=== PATIENT | male | born 1995 | race Hispanic/Latino ===

== ENCOUNTER 2020-10-24 21:17 | Inpatient (IN) | payer OTHER, SELFPAY ==
[2020-10-24] MEDS ORDERED: Lidocaine 1% w/Epinephrine 1:100K 20 ML VIAL ONE (21:26)
[2020-10-24 22:02] LABS: #Basophils 0.1 thou/uL (0.0-0.2); #Eosinphils 0.3 thou/uL (0.0-0.7); #Lymphocytes 2.2 thou/uL (1.20-3.40); #Monocytes 0.4 thou/uL (0.11-0.59); #Neutrophils 6.2 thou/uL (1.40-6.50); %Basophils 0.8 % (0.0-1.0); %Eosinophils 2.7 % (0.0-10.0); %Lymphocytes 24.4 % (21.0-51.0); %Monocytes 4.6 % (0.0-10.0); %Neutrophils 67.4 % (42.0-75.0); Mean Corpuscular HGB CONC 34.6 g/dL (32.0-36.0); Mean Corpuscular Hemoglobin 29.8 pg (27.0-31.0); Mean Platelet Volume 8.6 fL (7.4-10.4); Platelet Count 269 thou/uL (130-400); RBC Distribution Width 13.5 % (11.5-14.5); Red Blood Cell (RBC) Count 4.38 mill/uL (4.70-6.10); White Blood Cell (WBC) Count 9.2 thou/uL (4.8-10.8)
[2020-10-24 22:11] LABS: ALT (SGPT) 39 U/L (8-55); AST (SGOT) 35 U/L (5-34); Albumin 4.1 g/dL (3.5-5.0); Alcohol Less than 10 mg/dL (Less than 10); Alkaline Phosphatase 86 U/L (40-110); Anion Gap 15 mmol/L (10-20); BUN (Urea Nitrogen) 14 mg/dL (8.9-20.6); Bilirubin, Total 0.7 mg/dL (0.2-1.2); Calc. Creatinine Clearance 0 mL/min (70-130); Calcium 8.8 mg/dL (7.8-10.44); Carbon Dioxide 23 mmol/L (22-29); Chloride 105 mmol/L (98-107); Globulin 2.9 g/dL (2.4-3.5); Glucose 137 mg/dL (70-105); Potassium 3.5 mmol/L (3.5-5.1); Sodium 139 mmol/L (136-145)
[2020-10-24] MEDS ORDERED: Ondansetron PF 4 MG/2 ML Vial ONE (22:12)
[2020-10-24] MEDS ORDERED: EPINEPHrine 1 MG/ML AMP ONE (23:17)
[2020-10-24] MEDS ORDERED: Sodium Chloride 0.9% 10 ML ONE (23:17)
[2020-10-24] MEDS ORDERED: Thrombin 5000 UNITS/5 ML VIAL ONE (23:17)
[2020-10-24] MEDS ORDERED: Bacitracin Zinc Ointment 30 gm TUBE ONE (23:17)
[2020-10-24] MEDS ORDERED: Bupivacaine PF 0.5% 30 ML VIAL ONE (23:17)
[2020-10-24] MEDS ORDERED: Fentanyl 250 MCG/5 ML VIAL ONE (23:20)
[2020-10-24] MEDS ORDERED: Phenylephrine 10 MG/ML VIAL ONE (23:21)
[2020-10-24] MEDS ORDERED: Boostrix 0.5 ML (Tdap) VIAL ONE (23:25)
[2020-10-24] MEDS ORDERED: Lidocaine 1% PF 5 ML VIAL ONE (23:40)
[2020-10-24] MEDS ORDERED: ePHEDrine Sulfate 50 MG/10 ML VIAL ONE (23:40)
[2020-10-24] MEDS ORDERED: Vecuronium 10 MG VIAL ONE ×2 (23:40)
[2020-10-24] MEDS ORDERED: Succinylcholine 200 MG/10 ml SYRINGE FS ONE (23:40)
[2020-10-24] MEDS ORDERED: PROPOFOL 200 MG/20 ML VIAL ONE (23:40)
[2020-10-24] MEDS ORDERED: Dexamethasone 20 MG/5 ML VIAL ONE (23:40)
[2020-10-24] MEDS ORDERED: PHENYLEPHRINE-NS 100 MCG/ML 10 ML SYRINGE ONE (23:40)
[2020-10-24] MEDS ORDERED: Rocuronium Bromide 10 MG/ML (10ML VIAL) ONE (23:40)
[2020-10-25] MEDS ORDERED: Dextrose 5% in Water 1,000 ML IV PRN ×2 (00:18→01:11)
[2020-10-25] MEDS ORDERED: Dextrose 50% Abboject 50 ML SYRINGE SLOW IVP PRN ×2 (00:18→01:11)
[2020-10-25] MEDS ORDERED: TETANUS AND DIPHTHERIA TOX/PF 0.5 ML DISP.SYRIN IM ONE (00:18)
[2020-10-25] MEDS ORDERED: Morphine 2 MG/ML VIAL SLOW IVP PRN ×2 (00:18→06:00)
[2020-10-25] MEDS ORDERED: Ondansetron PF 4 MG/2 ML Vial IVP PRN (00:18)
[2020-10-25] MEDS ORDERED: traMADol HCl 50 MG TAB PO PRN (00:22)
[2020-10-25 00:38] LABS: SARS-CoV-2 NAA Rapid Test Not Detected (NotDetected)
[2020-10-25] MEDS ORDERED: Sodium Chloride 0.9% 10 ML ONE (00:57)
[2020-10-25] MEDS ORDERED: Vecuronium 10 MG VIAL ONE (04:06)
[2020-10-25] MEDS ORDERED: Prochlorperazine 10 MG/2 ML VIAL IM PRN (05:02)
[2020-10-25] MEDS ORDERED: Mag-Al 1200 mg/1200 mg/30 ML UDCUP PO PRN (05:02)
[2020-10-25] MEDS ORDERED: Bisacodyl 10 MG SUPP PR PRN (05:02)
[2020-10-25] MEDS ORDERED: tiZANidine HCl 4 MG TAB PO PRN (05:02)
[2020-10-25] MEDS ORDERED: Promethazine HCl 25 MG/ML VIAL IM PRN (05:02)
[2020-10-25] MEDS ORDERED: Milk Of Magnesia 30 ML UDCUP PO PRN (05:02)
[2020-10-25] MEDS ORDERED: Acetaminophen/Codeine 30-300mg Tablet PO PRN ×2 (05:02)
[2020-10-25] MEDS ORDERED: Promethazine HCl 12.5 MG SUPP PR PRN (05:02)
[2020-10-25 05:28] LABS: CO2 Tension 44.9 mmHg (35.0-45.0); Calcium, Ionized (arterial) 1.07 mmol/L (1.12-1.30); Carboxyhemoglobin (COHb) 0.2 gm% (0.0-3.0); Hemoglobin (Hb) 11.9 g/dL (14.0-18.0)
[2020-10-25 05:29] LABS: Puncture Site LRA; pH, Arterial 7.25 (7.35-7.45)
[2020-10-25 05:30] LABS: ALV-art Gradient 348.875 mmHg (0-20)
[2020-10-25] MEDS ORDERED: Sodium Bicarb 50 MEQ/50 ML Abboject 8.4% SYRINGE IVP SCH ×3 (05:45→07:15)
[2020-10-25] MEDS ORDERED: fentaNYL Citrate/PF 2,000 MCG in Sodium Chloride 0.9% 60 ML IV PRN (05:46)
[2020-10-25] MEDS ORDERED: Fentanyl CADD 100 ML IV SCH (06:00)
[2020-10-25] MEDS ORDERED: Calcium Chloride 13.6 MEQ in Sodium Chloride 0.9% 100 ML IVPB SCH (06:00)
[2020-10-25] MEDS ORDERED: Propofol BOLUS 1,000 MG/100 ML VIAL IV PRN (06:00)
[2020-10-25] MEDS ORDERED: traMADol HCl 50 MG TAB PO SCH (06:00)
[2020-10-25] MEDS ORDERED: DISCONTINUE PREVIOUS NARCOTIC PAIN MEDICATIONS AND BENZODIAZEPINES FS SCH (06:00)
[2020-10-25] MEDS ORDERED: Fentanyl BOLUS 250 ML IVPB PRN (06:00)
[2020-10-25] MEDS ORDERED: Propofol 1,000 MG/100 ML VIAL IV PRN (06:00)
[2020-10-25] MEDS: Acetaminophen 325 MG TAB PO SCH ×4 (06:06→23:59)
[2020-10-25] MEDS: Sodium Chloride 0.9% 1,000 ML IV SCH ×3 (06:08→21:14)
[2020-10-25] MEDS: Scopolamine 1.5 mg/72 hour Patch TD SCH (06:16)
[2020-10-25] MEDS: CEFAZOLIN 2 GM in Premix Bag 1 BAG IVPB SCH ×3 (06:16→22:14)
[2020-10-25] MEDS: Lorazepam 2 MG/ML VIAL SLOW IVP PRN ×5 (06:40→20:09)
[2020-10-25 06:57] LABS: INR-International Normal Ratio 1.1; PTT 23.4 sec (22.9-36.1); Prothrombin Time 14.1 sec (12.0-14.7)
[2020-10-25 06:59] LABS: #Basophils 0.1 thou/uL (0.0-0.2); #Lymphocytes 0.6 thou/uL (1.20-3.40); #Monocytes 0.1 thou/uL (0.11-0.59); #Neutrophils 14.1 thou/uL (1.40-6.50); %Basophils 0.8 % (0.0-1.0); %Eosinophils 0.1 % (0.0-10.0); %Lymphocytes 3.9 % (21.0-51.0); %Monocytes 0.9 % (0.0-10.0); %Neutrophils 94.2 % (42.0-75.0); Hemoglobin 11.6 g/dL (14.0-18.0); Mean Corpuscular HGB CONC 33.8 g/dL (32.0-36.0); Mean Corpuscular Hemoglobin 29.7 pg (27.0-31.0); Mean Corpuscular Volume 87.7 fL (78.0-98.0); Mean Platelet Volume 8.5 fL (7.4-10.4); Platelet Count 238 thou/uL (130-400); RBC Distribution Width 13.7 % (11.5-14.5); Red Blood Cell (RBC) Count 3.91 mill/uL (4.70-6.10); White Blood Cell (WBC) Count 14.9 thou/uL (4.8-10.8)
[2020-10-25 07:04] LABS: ALT (SGPT) 35 U/L (8-55); AST (SGOT) 33 U/L (5-34); Albumin 3.6 g/dL (3.5-5.0); Alkaline Phosphatase 75 U/L (40-110); Anion Gap 14 mmol/L (10-20); BUN (Urea Nitrogen) 14 mg/dL (8.9-20.6); Bilirubin, Total 0.9 mg/dL (0.2-1.2); Calc. Creatinine Clearance 0 mL/min (70-130); Calcium 7.8 mg/dL (7.8-10.44); Carbon Dioxide 20 mmol/L (22-29); Chloride 109 mmol/L (98-107); Globulin 2.6 g/dL (2.4-3.5); Glucose 209 mg/dL (70-105); Potassium 4.3 mmol/L (3.5-5.1); Protein, Total 6.2 g/dL (6.0-8.3); Sodium 139 mmol/L (136-145)
[2020-10-25] MEDS ORDERED: Fentanyl 100 MCG/2 ML VIAL ONE (07:04)
[2020-10-25] MEDS: Senokot S 8.6-50 MG TAB PO SCH ×2 (07:28→19:46)
[2020-10-25] MEDS: Gabapentin 300 MG CAP PO SCH ×3 (07:28→19:47)
[2020-10-25] MEDS: Famotidine/PF 20 mg/2ml Vial SLOW IVP SCH ×2 (07:37→19:47)
[2020-10-25] MEDS: Fentanyl 100 MCG/2 ML VIAL SLOW IVP PRN (08:30)
[2020-10-25] MEDS ORDERED: Fentanyl 100 MCG/2 ML VIAL SLOW IVP PRN (09:03)
[2020-10-25] MEDS ORDERED: Fentanyl CADD 100 ML ONE (09:54)
[2020-10-25] MEDS: Lactated Ringer's 500 ML IV SCH ×2 (19:45→23:35)
[2020-10-25] MEDS ORDERED: Lactated Ringer's 500 ML IV SCH ×2 (19:45→23:30)
[2020-10-25] MEDS: Ampicillin/Sulbactam 3 GM in Sodium Chloride 0.9% 100 ML IVPB SCH (23:15)
[2020-10-25] MEDS ORDERED: Hydrocortisone Sod Succ/PF 100 mg/2 ml Vial IVP SCH (23:30)
[2020-10-26] MEDS: Acetaminophen 325 MG TAB PO SCH ×3 (05:27→21:37)
[2020-10-26] MEDS: Sodium Chloride 0.9% 1,000 ML IV SCH ×3 (05:27→20:50)
[2020-10-26] MEDS: Ampicillin/Sulbactam 3 GM in Sodium Chloride 0.9% 100 ML IVPB SCH ×4 (05:27→23:32)
[2020-10-26 06:23] LABS: #Lymphocytes 1.3 thou/uL (1.20-3.40); #Monocytes 1.7 thou/uL (0.11-0.59); #Neutrophils 12.6 thou/uL (1.40-6.50); %Basophils 0.1 % (0.0-1.0); %Lymphocytes 8.5 % (21.0-51.0); %Monocytes 10.9 % (0.0-10.0); %Neutrophils 80.6 % (42.0-75.0); Mean Corpuscular HGB CONC 33.2 g/dL (32.0-36.0); Mean Corpuscular Hemoglobin 29.4 pg (27.0-31.0); Mean Corpuscular Volume 88.6 fL (78.0-98.0); Mean Platelet Volume 8.4 fL (7.4-10.4); Platelet Count 200 thou/uL (130-400); RBC Distribution Width 13.9 % (11.5-14.5); Red Blood Cell (RBC) Count 3.41 mill/uL (4.70-6.10); White Blood Cell (WBC) Count 15.6 thou/uL (4.8-10.8)
[2020-10-26 06:52] LABS: Anion Gap 11 mmol/L (10-20); BUN (Urea Nitrogen) 13 mg/dL (8.9-20.6); Calc. Creatinine Clearance 237 mL/min (70-130); Calcium 7.9 mg/dL (7.8-10.44); Carbon Dioxide 24 mmol/L (22-29); Chloride 109 mmol/L (98-107); Glucose 131 mg/dL (70-105); Magnesium 1.9 mg/dL (1.6-2.6); Phosphorus 2.4 mg/dL (2.3-4.7); Potassium 3.7 mmol/L (3.5-5.1); Sodium 140 mmol/L (136-145)
[2020-10-26] MEDS: Gabapentin 300 MG CAP PO SCH ×4 (07:55→20:50)
[2020-10-26] MEDS: Famotidine/PF 20 mg/2ml Vial SLOW IVP SCH ×2 (07:55→20:50)
[2020-10-26] MEDS: Senokot S 8.6-50 MG TAB PO SCH ×2 (07:55→20:50)
[2020-10-26] MEDS: Hydrocortisone Sod Succ/PF 100 mg/2 ml Vial IVP SCH ×2 (09:33→16:59)
[2020-10-26] MEDS ORDERED: Ketorolac Tromethamine 30 MG/ML VIAL IVP PRN (18:17)
[2020-10-26] MEDS ORDERED: Acetaminophen 650 MG Suppository PR SCH (18:30)
[2020-10-26] MEDS: Ibuprofen 200 MG TAB PO SCH (21:37)
[2020-10-26] MEDS: traMADol HCl 50 MG TAB PO SCH (21:46)
[2020-10-27] MEDS: Hydrocortisone Sod Succ/PF 100 mg/2 ml Vial IVP SCH ×3 (01:13→17:16)
[2020-10-27] MEDS: traMADol HCl 50 MG TAB PO SCH ×4 (03:25→22:16)
[2020-10-27] MEDS: Acetaminophen 325 MG TAB PO SCH ×4 (03:25→22:15)
[2020-10-27] MEDS: Ibuprofen 200 MG TAB PO SCH ×4 (03:26→22:16)
[2020-10-27 04:02] LABS: #Lymphocytes 1.7 thou/uL (1.20-3.40); #Monocytes 1.1 thou/uL (0.11-0.59); #Neutrophils 9.6 thou/uL (1.40-6.50); %Basophils 0.2 % (0.0-1.0); %Eosinophils 0.2 % (0.0-10.0); %Lymphocytes 13.8 % (21.0-51.0); %Monocytes 9.1 % (0.0-10.0); %Neutrophils 76.7 % (42.0-75.0); Hemoglobin 9.2 g/dL (14.0-18.0); Mean Corpuscular HGB CONC 34.4 g/dL (32.0-36.0); Mean Corpuscular Hemoglobin 30.6 pg (27.0-31.0); Mean Corpuscular Volume 88.9 fL (78.0-98.0); Mean Platelet Volume 8.7 fL (7.4-10.4); Platelet Count 177 thou/uL (130-400); RBC Distribution Width 13.9 % (11.5-14.5); Red Blood Cell (RBC) Count 3.02 mill/uL (4.70-6.10); White Blood Cell (WBC) Count 12.5 thou/uL (4.8-10.8)
[2020-10-27] MEDS: Sodium Chloride 0.9% 1,000 ML IV SCH (04:13)
[2020-10-27 04:22] LABS: Anion Gap 10 mmol/L (10-20); BUN (Urea Nitrogen) 12 mg/dL (8.9-20.6); Calc. Creatinine Clearance 230 mL/min (70-130); Calcium 7.8 mg/dL (7.8-10.44); Carbon Dioxide 25 mmol/L (22-29); Chloride 108 mmol/L (98-107); Glucose 105 mg/dL (70-105); Magnesium 2.2 mg/dL (1.6-2.6); Phosphorus 2.2 mg/dL (2.3-4.7); Potassium 3.7 mmol/L (3.5-5.1); Sodium 139 mmol/L (136-145)
[2020-10-27 05:18] VITALS: BMI 32.4
[2020-10-27] MEDS: Ampicillin/Sulbactam 3 GM in Sodium Chloride 0.9% 100 ML IVPB SCH ×3 (05:57→17:17)
[2020-10-27] MEDS: Famotidine/PF 20 mg/2ml Vial SLOW IVP SCH ×2 (08:28→22:10)
[2020-10-27] MEDS: Gabapentin 300 MG CAP PO SCH ×3 (08:30→22:08)
[2020-10-27] MEDS: Senokot S 8.6-50 MG TAB PO SCH ×2 (08:31→22:12)
[2020-10-28] MEDS: Ampicillin/Sulbactam 3 GM in Sodium Chloride 0.9% 100 ML IVPB SCH ×5 (01:04→23:32)
[2020-10-28] MEDS: Hydrocortisone Sod Succ/PF 100 mg/2 ml Vial IVP SCH (01:05)
[2020-10-28] MEDS: traMADol HCl 50 MG TAB PO SCH ×4 (04:37→21:33)
[2020-10-28] MEDS: Acetaminophen 325 MG TAB PO SCH ×4 (04:37→21:33)
[2020-10-28] MEDS: Ibuprofen 200 MG TAB PO SCH ×4 (04:38→21:34)
[2020-10-28] MEDS: Scopolamine 1.5 mg/72 hour Patch TD SCH (04:57)
[2020-10-28] MEDS: Senokot S 8.6-50 MG TAB PO SCH ×2 (10:42→21:34)
[2020-10-28] MEDS: Gabapentin 300 MG CAP PO SCH ×3 (10:42→21:33)
[2020-10-28] MEDS: Famotidine/PF 20 mg/2ml Vial SLOW IVP SCH ×2 (10:43→21:34)
[2020-10-28] MEDS: Cyclobenzaprine 10 MG TAB PO PRN (13:01)
[2020-10-29] MEDS: Ampicillin/Sulbactam 3 GM in Sodium Chloride 0.9% 100 ML IVPB SCH ×4 (05:28→23:08)
[2020-10-29] MEDS: traMADol HCl 50 MG TAB PO SCH ×4 (05:29→21:49)
[2020-10-29] MEDS: Ibuprofen 200 MG TAB PO SCH ×4 (05:29→21:50)
[2020-10-29] MEDS: Acetaminophen 325 MG TAB PO SCH ×4 (05:29→21:50)
[2020-10-29] MEDS: Famotidine/PF 20 mg/2ml Vial SLOW IVP SCH (09:41)
[2020-10-29] MEDS: Gabapentin 300 MG CAP PO SCH ×3 (09:42→21:49)
[2020-10-29] MEDS: Senokot S 8.6-50 MG TAB PO SCH ×2 (09:42→21:49)
[2020-10-29] MEDS ORDERED: Polyethylene Glycol 3350 17 GM Packet PO PRN (11:49)
[2020-10-29] MEDS: Enoxaparin Sodium 40 MG/0.4 ML SYRINGE SC SCH (21:49)
[2020-10-30] MEDS: Cyclobenzaprine 10 MG TAB PO PRN (00:31)
[2020-10-30] MEDS: Acetaminophen 325 MG TAB PO SCH ×4 (05:00→20:45)
[2020-10-30] MEDS: traMADol HCl 50 MG TAB PO SCH ×4 (05:00→20:46)
[2020-10-30] MEDS: Ibuprofen 200 MG TAB PO SCH ×4 (05:01→20:45)
[2020-10-30 05:42] LABS: #Eosinphils 0.3 thou/uL (0.0-0.7); #Lymphocytes 1.7 thou/uL (1.20-3.40); #Monocytes 0.6 thou/uL (0.11-0.59); #Neutrophils 5.5 thou/uL (1.40-6.50); %Basophils 0.5 % (0.0-1.0); %Eosinophils 3.9 % (0.0-10.0); %Lymphocytes 20.9 % (21.0-51.0); %Monocytes 7.3 % (0.0-10.0); %Neutrophils 67.5 % (42.0-75.0); Mean Corpuscular HGB CONC 33.2 g/dL (32.0-36.0); Mean Corpuscular Hemoglobin 29.1 pg (27.0-31.0); Mean Corpuscular Volume 87.7 fL (78.0-98.0); Mean Platelet Volume 7.8 fL (7.4-10.4); Platelet Count 315 thou/uL (130-400); RBC Distribution Width 13.5 % (11.5-14.5); Red Blood Cell (RBC) Count 3.77 mill/uL (4.70-6.10); White Blood Cell (WBC) Count 8.1 thou/uL (4.8-10.8)
[2020-10-30 05:59] LABS: Anion Gap 12 mmol/L (10-20); BUN (Urea Nitrogen) 12 mg/dL (8.9-20.6); Calc. Creatinine Clearance 231 mL/min (70-130); Calcium 8.6 mg/dL (7.8-10.44); Carbon Dioxide 26 mmol/L (22-29); Chloride 103 mmol/L (98-107); Glucose 100 mg/dL (70-105); Magnesium 2.2 mg/dL (1.6-2.6); Phosphorus 3.6 mg/dL (2.3-4.7); Potassium 3.8 mmol/L (3.5-5.1); Sodium 137 mmol/L (136-145)
[2020-10-30] MEDS: Ampicillin/Sulbactam 3 GM in Sodium Chloride 0.9% 100 ML IVPB SCH ×3 (06:29→18:08)
[2020-10-30] MEDS: Senokot S 8.6-50 MG TAB PO SCH ×2 (08:40→20:45)
[2020-10-30] MEDS: Gabapentin 300 MG CAP PO SCH ×3 (08:41→20:42)
[2020-10-30] MEDS: Fluticasone Propionate Nasal Spray 16 gm Bottle NASAL SCH (08:42)
[2020-10-30] MEDS: Saccharomyces boulardii 250 MG CAP PO SCH (09:52)
[2020-10-30] MEDS: Enoxaparin Sodium 40 MG/0.4 ML SYRINGE SC SCH (20:46)
[2020-10-30] MEDS: Fentanyl 100 MCG/2 ML VIAL SLOW IVP PRN (23:23)
[2020-10-31] MEDS: Cyclobenzaprine 10 MG TAB PO PRN ×2 (00:54→07:46)
[2020-10-31] MEDS: Ampicillin/Sulbactam 3 GM in Sodium Chloride 0.9% 100 ML IVPB SCH ×4 (00:54→17:33)
[2020-10-31] MEDS: Acetaminophen 325 MG TAB PO SCH ×3 (04:02→17:32)
[2020-10-31] MEDS: Ibuprofen 200 MG TAB PO SCH ×4 (04:03→22:04)
[2020-10-31] MEDS: traMADol HCl 50 MG TAB PO SCH ×3 (04:03→17:33)
[2020-10-31] MEDS: Scopolamine 1.5 mg/72 hour Patch TD SCH (05:50)
[2020-10-31] MEDS: Saccharomyces boulardii 250 MG CAP PO SCH (07:46)
[2020-10-31] MEDS: Gabapentin 300 MG CAP PO SCH ×3 (07:46→20:06)
[2020-10-31] MEDS: Fluticasone Propionate Nasal Spray 16 gm Bottle NASAL SCH (07:47)
[2020-10-31] MEDS: Senokot S 8.6-50 MG TAB PO SCH ×2 (09:20→20:11)
[2020-10-31] MEDS: Enoxaparin Sodium 40 MG/0.4 ML SYRINGE SC SCH (20:11)
[2020-10-31] MEDS ORDERED: Melatonin 3 MG TAB PO SCH (21:00)
[2020-11-01] MEDS: Acetaminophen 325 MG TAB PO SCH ×4 (00:02→18:22)
[2020-11-01] MEDS: traMADol HCl 50 MG TAB PO SCH ×4 (00:02→18:23)
[2020-11-01] MEDS: Ampicillin/Sulbactam 3 GM in Sodium Chloride 0.9% 100 ML IVPB SCH ×6 (00:03→22:41)
[2020-11-01] MEDS: Ibuprofen 200 MG TAB PO SCH ×4 (04:02→22:39)
[2020-11-01] MEDS: Fluticasone Propionate Nasal Spray 16 gm Bottle NASAL SCH (07:37)
[2020-11-01] MEDS: Saccharomyces boulardii 250 MG CAP PO SCH (08:31)
[2020-11-01] MEDS: Senokot S 8.6-50 MG TAB PO SCH ×2 (08:31→20:11)
[2020-11-01] MEDS: Gabapentin 300 MG CAP PO SCH ×3 (08:31→20:11)
[2020-11-01] MEDS ORDERED: Sodium Chloride 0.9% 1,000 ML IV SCH (18:00)
[2020-11-01] MEDS: Enoxaparin Sodium 40 MG/0.4 ML SYRINGE SC SCH (20:11)
[2020-11-02] MEDS: traMADol HCl 50 MG TAB PO SCH ×4 (01:56→17:20)
[2020-11-02] MEDS: Acetaminophen 325 MG TAB PO SCH ×4 (01:57→17:19)
[2020-11-02] MEDS: Ibuprofen 200 MG TAB PO SCH ×3 (05:14→15:45)
[2020-11-02 05:50] LABS: Anion Gap 12 mmol/L (10-20); BUN (Urea Nitrogen) 15 mg/dL (8.9-20.6); Calc. Creatinine Clearance 228 mL/min (70-130); Calcium 8.7 mg/dL (7.8-10.44); Carbon Dioxide 25 mmol/L (22-29); Chloride 102 mmol/L (98-107); Glucose 95 mg/dL (70-105); Magnesium 2.3 mg/dL (1.6-2.6); Phosphorus 5.2 mg/dL (2.3-4.7); Potassium 4.5 mmol/L (3.5-5.1); Sodium 134 mmol/L (136-145)
[2020-11-02] MEDS: Fluticasone Propionate Nasal Spray 16 gm Bottle NASAL SCH (08:19)
[2020-11-02] MEDS: Senokot S 8.6-50 MG TAB PO SCH ×2 (08:19→21:17)
[2020-11-02] MEDS: Saccharomyces boulardii 250 MG CAP PO SCH (08:20)
[2020-11-02] MEDS: Gabapentin 300 MG CAP PO SCH ×3 (08:20→21:18)
[2020-11-02] MEDS ORDERED: Hydrocortisone Sod Succ/PF 100 mg/2 ml Vial IVP SCH (11:15)
[2020-11-02] MEDS: traMADol HCl 50 MG TAB PO PRN (12:34)
[2020-11-02] MEDS: Hydrocortisone Sod Succ/PF 100 mg/2 ml Vial IVP SCH ×2 (15:45→21:17)
[2020-11-02] MEDS: Enoxaparin Sodium 40 MG/0.4 ML SYRINGE SC SCH (21:18)
[2020-11-03] MEDS: Ibuprofen 200 MG TAB PO SCH ×4 (01:27→17:02)
[2020-11-03] MEDS: Acetaminophen 325 MG TAB PO SCH ×5 (01:28→23:58)
[2020-11-03] MEDS: traMADol HCl 50 MG TAB PO SCH ×5 (01:30→23:58)
[2020-11-03] MEDS: Hydrocortisone Sod Succ/PF 100 mg/2 ml Vial IVP SCH ×3 (05:49→23:59)
[2020-11-03] MEDS: Scopolamine 1.5 mg/72 hour Patch TD SCH (05:50)
[2020-11-03] MEDS: Gabapentin 300 MG CAP PO SCH ×3 (09:32→19:34)
[2020-11-03] MEDS: Saccharomyces boulardii 250 MG CAP PO SCH (09:32)
[2020-11-03] MEDS: Fluticasone Propionate Nasal Spray 16 gm Bottle NASAL SCH (09:33)
[2020-11-03] MEDS: Senokot S 8.6-50 MG TAB PO SCH ×2 (09:33→19:35)
[2020-11-03] MEDS: Enoxaparin Sodium 40 MG/0.4 ML SYRINGE SC SCH (19:35)
[2020-11-04] MEDS: Ibuprofen 200 MG TAB PO SCH ×5 (06:01→22:29)
[2020-11-04] MEDS: Hydrocortisone Sod Succ/PF 100 mg/2 ml Vial IVP SCH ×3 (06:03→22:30)
[2020-11-04] MEDS: Acetaminophen 325 MG TAB PO SCH ×4 (06:04→23:27)
[2020-11-04] MEDS: traMADol HCl 50 MG TAB PO SCH ×4 (06:05→23:28)
[2020-11-04] MEDS ORDERED: Bisacodyl 10 MG SUPP PR SCH ×2 (08:30→09:00)
[2020-11-04] MEDS: Gabapentin 300 MG CAP PO SCH ×3 (10:20→20:40)
[2020-11-04] MEDS: Senokot S 8.6-50 MG TAB PO SCH ×2 (10:20→20:41)
[2020-11-04] MEDS: Fluticasone Propionate Nasal Spray 16 gm Bottle NASAL SCH (10:21)
[2020-11-04] MEDS: Saccharomyces boulardii 250 MG CAP PO SCH (10:21)
[2020-11-04] MEDS: Bisacodyl 10 MG SUPP PR SCH (10:21)
[2020-11-04] MEDS: Midodrine HCl 5 MG TAB PO SCH ×2 (12:03→20:43)
[2020-11-04] MEDS: Enoxaparin Sodium 40 MG/0.4 ML SYRINGE SC SCH (20:40)
[2020-11-04] MEDS ORDERED: Sodium Chloride 0.9% 500 ML IV SCH (23:15)
[2020-11-05] MEDS: traMADol HCl 50 MG TAB PO PRN (03:35)
[2020-11-05] MEDS: Ibuprofen 200 MG TAB PO SCH ×4 (03:35→21:57)
[2020-11-05] MEDS: Acetaminophen 325 MG TAB PO SCH ×4 (05:24→23:14)
[2020-11-05] MEDS: Hydrocortisone Sod Succ/PF 100 mg/2 ml Vial IVP SCH ×3 (05:24→21:58)
[2020-11-05] MEDS: traMADol HCl 50 MG TAB PO SCH ×4 (05:24→23:14)
[2020-11-05] MEDS: Gabapentin 300 MG CAP PO SCH ×3 (09:34→20:44)
[2020-11-05] MEDS: Senokot S 8.6-50 MG TAB PO SCH ×2 (09:34→20:45)
[2020-11-05] MEDS: Saccharomyces boulardii 250 MG CAP PO SCH (09:34)
[2020-11-05] MEDS: Midodrine HCl 5 MG TAB PO SCH ×2 (09:34→20:47)
[2020-11-05] MEDS: Bisacodyl 10 MG SUPP PR SCH (09:35)
[2020-11-05] MEDS: Fluticasone Propionate Nasal Spray 16 gm Bottle NASAL SCH (09:35)
[2020-11-05] MEDS: Polyethylene Glycol 3350 17 GM Packet PO SCH (09:35)
[2020-11-05] MEDS: Enoxaparin Sodium 40 MG/0.4 ML SYRINGE SC SCH (20:43)
[2020-11-06] MEDS: Ibuprofen 200 MG TAB PO SCH ×4 (03:59→21:10)
[2020-11-06] MEDS: Scopolamine 1.5 mg/72 hour Patch TD SCH (05:27)
[2020-11-06] MEDS: Acetaminophen 325 MG TAB PO SCH ×3 (05:28→17:43)
[2020-11-06] MEDS: traMADol HCl 50 MG TAB PO SCH ×3 (05:28→17:42)
[2020-11-06] MEDS: Hydrocortisone Sod Succ/PF 100 mg/2 ml Vial IVP SCH ×3 (05:29→21:10)
[2020-11-06] MEDS: Saccharomyces boulardii 250 MG CAP PO SCH (08:51)
[2020-11-06] MEDS: Gabapentin 300 MG CAP PO SCH ×3 (08:51→20:09)
[2020-11-06] MEDS: Fluticasone Propionate Nasal Spray 16 gm Bottle NASAL SCH (08:51)
[2020-11-06] MEDS: Midodrine HCl 5 MG TAB PO SCH ×2 (08:52→20:10)
[2020-11-06] MEDS: Polyethylene Glycol 3350 17 GM Packet PO SCH (08:52)
[2020-11-06] MEDS: Bisacodyl 10 MG SUPP PR SCH (08:52)
[2020-11-06] MEDS: Senokot S 8.6-50 MG TAB PO SCH ×2 (08:52→20:09)
[2020-11-06] MEDS: Enoxaparin Sodium 40 MG/0.4 ML SYRINGE SC SCH (20:10)
[2020-11-07] MEDS: traMADol HCl 50 MG TAB PO SCH ×5 (00:21→23:25)
[2020-11-07] MEDS: Acetaminophen 325 MG TAB PO SCH ×5 (00:21→23:24)
[2020-11-07] MEDS: Ibuprofen 200 MG TAB PO SCH ×4 (04:22→20:35)
[2020-11-07] MEDS: Hydrocortisone Sod Succ/PF 100 mg/2 ml Vial IVP SCH ×3 (05:28→20:35)
[2020-11-07] MEDS: Gabapentin 300 MG CAP PO SCH ×3 (09:34→20:16)
[2020-11-07] MEDS: Midodrine HCl 5 MG TAB PO SCH ×2 (09:34→20:16)
[2020-11-07] MEDS: Saccharomyces boulardii 250 MG CAP PO SCH (09:34)
[2020-11-07] MEDS: Senokot S 8.6-50 MG TAB PO SCH ×2 (09:34→20:16)
[2020-11-07] MEDS: Polyethylene Glycol 3350 17 GM Packet PO SCH (09:35)
[2020-11-07] MEDS: Fluticasone Propionate Nasal Spray 16 gm Bottle NASAL SCH (09:35)
[2020-11-07] MEDS: Bisacodyl 10 MG SUPP PR SCH (09:35)
[2020-11-07] MEDS: Enoxaparin Sodium 40 MG/0.4 ML SYRINGE SC SCH (20:16)
[2020-11-08] MEDS: Ibuprofen 200 MG TAB PO SCH ×4 (05:04→21:00)
[2020-11-08] MEDS: traMADol HCl 50 MG TAB PO SCH ×3 (05:05→17:31)
[2020-11-08] MEDS: Hydrocortisone Sod Succ/PF 100 mg/2 ml Vial IVP SCH (05:05)
[2020-11-08] MEDS: Acetaminophen 325 MG TAB PO SCH ×3 (05:05→17:31)
[2020-11-08] MEDS: Senokot S 8.6-50 MG TAB PO SCH ×2 (08:49→21:08)
[2020-11-08] MEDS: Saccharomyces boulardii 250 MG CAP PO SCH (08:49)
[2020-11-08] MEDS: Midodrine HCl 5 MG TAB PO SCH ×3 (08:50→21:00)
[2020-11-08] MEDS: Polyethylene Glycol 3350 17 GM Packet PO SCH (08:50)
[2020-11-08] MEDS: Gabapentin 300 MG CAP PO SCH ×3 (08:50→20:55)
[2020-11-08] MEDS: Fluticasone Propionate Nasal Spray 16 gm Bottle NASAL SCH (08:51)
[2020-11-08] MEDS: Bisacodyl 10 MG SUPP PR SCH (09:34)
[2020-11-08] MEDS: Enoxaparin Sodium 40 MG/0.4 ML SYRINGE SC SCH (21:01)
[2020-11-09] MEDS: traMADol HCl 50 MG TAB PO SCH ×4 (00:14→18:29)
[2020-11-09] MEDS: Acetaminophen 325 MG TAB PO SCH ×4 (00:16→18:28)
[2020-11-09] MEDS: Ibuprofen 200 MG TAB PO SCH ×4 (05:25→21:43)
[2020-11-09] MEDS: Scopolamine 1.5 mg/72 hour Patch TD SCH (06:49)
[2020-11-09] MEDS: Senokot S 8.6-50 MG TAB PO SCH ×2 (09:41→21:42)
[2020-11-09] MEDS: Midodrine HCl 5 MG TAB PO SCH ×3 (09:41→21:44)
[2020-11-09] MEDS: Saccharomyces boulardii 250 MG CAP PO SCH (09:41)
[2020-11-09] MEDS: Bisacodyl 10 MG SUPP PR SCH (09:41)
[2020-11-09] MEDS: Fluticasone Propionate Nasal Spray 16 gm Bottle NASAL SCH (09:41)
[2020-11-09] MEDS: Polyethylene Glycol 3350 17 GM Packet PO SCH (09:42)
[2020-11-09] MEDS: Gabapentin 300 MG CAP PO SCH ×3 (09:42→21:43)
[2020-11-09] MEDS: Enoxaparin Sodium 40 MG/0.4 ML SYRINGE SC SCH (21:41)
[2020-11-10] MEDS: traMADol HCl 50 MG TAB PO SCH ×4 (01:12→18:15)
[2020-11-10] MEDS: Acetaminophen 325 MG TAB PO SCH ×4 (01:13→18:15)
[2020-11-10] MEDS: Ibuprofen 200 MG TAB PO SCH ×4 (04:35→21:40)
[2020-11-10] MEDS: Saccharomyces boulardii 250 MG CAP PO SCH (09:16)
[2020-11-10] MEDS: Bisacodyl 10 MG SUPP PR SCH (09:16)
[2020-11-10] MEDS: Senokot S 8.6-50 MG TAB PO SCH ×2 (09:17→21:41)
[2020-11-10] MEDS: Midodrine HCl 5 MG TAB PO SCH ×3 (09:17→21:40)
[2020-11-10] MEDS: Polyethylene Glycol 3350 17 GM Packet PO SCH (09:17)
[2020-11-10] MEDS: Gabapentin 300 MG CAP PO SCH ×3 (09:17→21:39)
[2020-11-10] MEDS: Fluticasone Propionate Nasal Spray 16 gm Bottle NASAL SCH (09:33)
[2020-11-10] MEDS ORDERED: traMADol HCl 50 MG TAB PO PRN (11:29)
[2020-11-10 14:14] LABS: Anion Gap 15 mmol/L (10-20); BUN (Urea Nitrogen) 18 mg/dL (8.9-20.6); Calc. Creatinine Clearance 199 mL/min (70-130); Calcium 9.8 mg/dL (7.8-10.44); Carbon Dioxide 26 mmol/L (22-29); Chloride 95 mmol/L (98-107); Glucose 96 mg/dL (70-105); Magnesium 2.2 mg/dL (1.6-2.6); Phosphorus 5.1 mg/dL (2.3-4.7); Potassium 4.6 mmol/L (3.5-5.1); Sodium 131 mmol/L (136-145)
[2020-11-10 19:46] LABS: Bacteria/HPF None Seen HPF (None Seen); RBC/HPF Greater than 50 HPF (0-3); WBC/HPF Greater than 50 HPF (0-3)
[2020-11-10] MEDS: Enoxaparin Sodium 40 MG/0.4 ML SYRINGE SC SCH (21:39)
[2020-11-11] MEDS: Acetaminophen 325 MG TAB PO SCH ×3 (00:37→12:05)
[2020-11-11] MEDS: traMADol HCl 50 MG TAB PO SCH ×3 (00:40→12:06)
[2020-11-11] MEDS: Ibuprofen 200 MG TAB PO SCH ×2 (04:34→09:53)
[2020-11-11] MEDS ORDERED: Sulfameth/Trimethoprim DS 800-160mg TAB PO SCH (09:00)
[2020-11-11] MEDS: Fluticasone Propionate Nasal Spray 16 gm Bottle NASAL SCH (09:52)
[2020-11-11] MEDS: Polyethylene Glycol 3350 17 GM Packet PO SCH (09:53)
[2020-11-11] MEDS: Senokot S 8.6-50 MG TAB PO SCH (09:53)
[2020-11-11] MEDS: Gabapentin 300 MG CAP PO SCH (09:53)
[2020-11-11] MEDS: Bisacodyl 10 MG SUPP PR SCH (09:53)
[2020-11-11] MEDS: Saccharomyces boulardii 250 MG CAP PO SCH (09:53)
[2020-11-11] MEDS: Midodrine HCl 5 MG TAB PO SCH (09:55)
[2020-11-11 12:00] VITALS: BP 100/63; TEMP 98.5
== END 2020-11-11 12:25 | DRG 453 ==
LOC: ERS 21:17 → SDC/OP 23:39 → CCU 10-25 01:18 → SURG B 10-27 10:07
PROVIDERS: ADMIT Surgery; ATTEND Surgery
PROC: 0RG2070 Fusion of 2 or more Cervical Vertebral Joints with Autologous Tissue Substitute, Anterior Approach, Anterior Column, Open Approach (ICD-10-PCS; principal; 2020-10-24)
PROC: 0RG2071 Fusion of 2 or more Cervical Vertebral Joints with Autologous Tissue Substitute, Posterior Approach, Posterior Column, Open Approach (ICD-10-PCS; 2020-10-24)
PROC: 0RB30ZZ Excision of Cervical Vertebral Disc, Open Approach (ICD-10-PCS; 2020-10-24)
PROC: 0PS304Z Reposition Cervical Vertebra with Internal Fixation Device, Open Approach (ICD-10-PCS; 2020-10-24)
DX: S12.490A Other displaced fracture of fifth cervical vertebra, initial encounter for closed fracture (principal); J95.821 Acute postprocedural respiratory failure; G82.20 Paraplegia, unspecified; E27.40 Unspecified adrenocortical insufficiency; N39.0 Urinary tract infection, site not specified; E87.1 Hypo-osmolality and hyponatremia; Z20.822 Contact with and (suspected) exposure to COVID-19; S14.0XXA Concussion and edema of cervical spinal cord, initial encounter; V46.6XXA Car passenger injured in collision with other nonmotor vehicle in traffic accident, initial encounter; S01.01XA Laceration without foreign body of scalp, initial encounter; R40.2363 Coma scale, best motor response, obeys commands, at hospital admission; R40.2143 Coma scale, eyes open, spontaneous, at hospital admission; R40.2253 Coma scale, best verbal response, oriented, at hospital admission; R20.1 Hypoesthesia of skin; Y83.8 Other surgical procedures as the cause of abnormal reaction of the patient, or of later complication, without mention of misadventure at the time of the procedure; I95.81 Postprocedural hypotension
CPT/HCPCS: 31624; 36415; 36600; 70450; 71045; 71260; 72125; 72141; 72146; 74177; 76000; 80048; 80053; 80307; 81015; 82533; 82805; 83735; 83930; 84100; 85025; 85610; 85730; 87070; 87077; 87086; 87186; 87205; 90471; 90715; 94002; 94003; 94640; 96374; C1713; C1768; C1769; C1776; G0390; J0171; J0295; J0690; J1100; J1650; J1720; J2060; J2370; J2405; J2704; J3010; J3370; J3490; J7620; S0020; S0028; U0002

== ENCOUNTER 2020-11-16 15:42 | Emergency (ER) | payer OTHER, SELFPAY ==
[2020-11-16 16:10] LABS: #Eosinphils 0.3 thou/uL (0.0-0.7); #Lymphocytes 1.3 thou/uL (1.20-3.40); #Monocytes 0.5 thou/uL (0.11-0.59); #Neutrophils 4.1 thou/uL (1.40-6.50); %Eosinophils 5.5 % (0.0-10.0); %Lymphocytes 21.2 % (21.0-51.0); %Monocytes 7.5 % (0.0-10.0); %Neutrophils 65.7 % (42.0-75.0); Hemoglobin 12.3 g/dL (14.0-18.0); Mean Corpuscular HGB CONC 32.6 g/dL (32.0-36.0); Mean Corpuscular Hemoglobin 28.8 pg (27.0-31.0); Mean Corpuscular Volume 88.3 fL (78.0-98.0); Platelet Count 456 thou/uL (130-400); RBC Distribution Width 12.7 % (11.5-14.5); Red Blood Cell (RBC) Count 4.26 mill/uL (4.70-6.10); White Blood Cell (WBC) Count 6.3 thou/uL (4.8-10.8)
[2020-11-16 16:38] LABS: ALT (SGPT) 27 U/L (8-55); AST (SGOT) 34 U/L (5-34); Alkaline Phosphatase 98 U/L (40-110); Anion Gap 17 mmol/L (10-20); BUN (Urea Nitrogen) 14 mg/dL (8.9-20.6); Bilirubin, Total 0.6 mg/dL (0.2-1.2); Calc. Creatinine Clearance 0 mL/min (70-130); Carbon Dioxide 24 mmol/L (22-29); Chloride 100 mmol/L (98-107); Globulin 3.6 g/dL (2.4-3.5); Glucose 100 mg/dL (70-105); Potassium 4.1 mmol/L (3.5-5.1); Protein, Total 7.6 g/dL (6.0-8.3); Sodium 137 mmol/L (136-145)
[2020-11-16] MEDS ORDERED: Ondansetron PF 4 MG/2 ML Vial ONE (18:29)
[2020-11-16 18:39] LABS: Bacteria/HPF 4+ HPF (None Seen); Bilirubin Negative (Negative); Blood, Urine 3+ (Negative); Clarity Extra Turbid (Clear); Glucose, Urine (Dipstick) Normal (Negative); Ketone, Urine 60 mg/dL (Negative); Leukocyte 250 Leu/uL (Negative); Nitrite Negative (Negative); Protein, Urine (Dipstick) 100 mg/dL (Neg-Trace); RBC/HPF Greater than 50 HPF (0-3); Specific Gravity, Urine 1.024 (1.002-1.036); Squamous Epithelial 0-3 HPF (0-3); Urobilinogen 3 mg/dL (Less than 2); WBC/HPF Greater than 50 HPF (0-3)
[2020-11-16 18:51] LABS: Sperm/HPF 3+ HPF (None Seen)
== END 2020-11-16 19:18 | disposition home or self-care (01) ==
LOC: ERS 15:42
DX: R00.1 Bradycardia, unspecified (principal); S14.101D Unspecified injury at C1 level of cervical spinal cord, subsequent encounter; S12.000D Unspecified displaced fracture of first cervical vertebra, subsequent encounter for fracture with routine healing; S12.100D Unspecified displaced fracture of second cervical vertebra, subsequent encounter for fracture with routine healing; S12.200D Unspecified displaced fracture of third cervical vertebra, subsequent encounter for fracture with routine healing; S12.300D Unspecified displaced fracture of fourth cervical vertebra, subsequent encounter for fracture with routine healing; N39.0 Urinary tract infection, site not specified; V89.2XXD Person injured in unspecified motor-vehicle accident, traffic, subsequent encounter
CPT/HCPCS: 36415; 80053; 81003; 81015; 84443; 84484; 85025; 87086; 93005; 96374; J2405